=== PATIENT | male | born 1980 | race African-American/Black ===

== ENCOUNTER → 2018-07-11 16:10 | Emergency (ER) | payer SELFPAY ==
[~2018-07-11 16:10] MED LIST: Ibuprofen TAB* 600 MG PO ONE
--- NOTE | 2018-07-11 18:11 | ED ---
Lower Extremity - HPI Summary HPI Summary: Patient complains of right ankle pain starting Tuesday after he tripped. Patient has been ambulatory since. Denies any other symptoms, pain or injury. - History of Current Complaint Chief Complaint: EDExtremityLower Stated Complaint: ANKLE/FOOT SWOLLEN PER PT Time Seen by Provider: 07/11/18 16:39 Hx Obtained From: Patient Mechanism Of Injury: Twisted Onset of Pain: Immediate Onset/Duration: Days Severity Initially: Moderate Severity Currently: Moderate Pain Intensity: 4 Pain Scale Used: 0-10 Numeric Timing: Constant Location: Is Discrete @ Character Of Pain: Aching, Throbbing Associated Signs And Symptoms: Positive: Swelling Aggravating Factor(s): Weight Bearing Alleviating Factor(s): Rest, Elevation Able to Bear Weight: Yes - Allergies/Home Medications Allergies/Adverse Reactions: Allergies Allergy/AdvReac Type Severity Reaction Status Date / Time amoxicillin Allergy Difficulty Verified 07/11/18 16:16 Breathing Home Medications: Home Medications NK [No Home Medications Reported] 07/11/18 [History Confirmed 07/11/18] PMH/Surg Hx/FS Hx/Imm Hx Endocrine/Hematology History: Denies: Hx Anticoagulant Therapy Cardiovascular History: Denies: Hx Pacemaker/ICD History: Denies: Hx Dialysis Sensory History: Denies: Hx Eye Prosthesis Opthamlomology History: Denies: Hx Legally Blind EENT History: Denies: Hx Deafness Neurological History: Denies: Hx Dementia Psychiatric History: Denies: Hx Autism Infectious Disease History: No Infectious Disease History: Denies: Traveled Outside the [place] in Last 30 Days - Social History Alcohol Use: None Substance Use Type: Reports: None Smoking Status (MU): Never Smoked Tobacco Review of Systems Constitutional: Negative Eyes: Negative ENT: Negative Cardiovascular: Negative Respiratory: Negative Gastrointestinal: Negative Genitourinary: Negative Musculoskeletal: Other Skin: Negative Neurological: Negative Psychological: Normal All Other Systems Reviewed And Are Negative: Yes Physical Exam - Summary Physical Exam Summary: Swelling and tenderness to right lateral ankle. Exam of foot normal. Nontender. PMS intact distally. No obvious ecchymosis, erythema, deformity to right ankle. Triage Information Reviewed: Yes Vital Signs On Initial Exam: Initial Vitals Temp Pulse Resp BP Pulse Ox 99.6 F 81 18 134/92 97 07/11/18 16:14 07/11/18 16:14 07/11/18 16:14 07/11/18 16:14 07/11/18 16:14 Vital Signs Reviewed: Yes Appearance: Positive: Well-Appearing Skin: Positive: Warm Head/Face: Positive: Normal Head/Face Inspection Eyes: Positive: Normal Neck: Positive: Supple Respiratory/Lung Sounds: Positive: Clear to Auscultation Cardiovascular: Positive: Normal Abdomen Description: Positive: Nontender Musculoskeletal: Positive: Normal Neurological: Positive: Normal Psychiatric: Positive: Normal AVPU Assessment: Alert - [place] Coma Scale Best Eye Response: 4 - Spontaneous Best Motor Response: 6 - Obeys Commands Best Verbal Response: 5 - Oriented Coma Scale Total: 15 Diagnostics - Vital Signs Vital Signs Temp Pulse Resp BP Pulse Ox 07/11/18 16:14 99.6 F 81 18 134/92 97 - Laboratory Lab Statement: Any lab studies that have been ordered have been reviewed, and results considered in the medical decision making process. Lower Extremity Course/Dx - Course Course Of Treatment: Patient complains of right ankle pain starting Tuesday after he tripped. Patient has been ambulatory since. Denies any other symptoms , pain or injury. Physical exam:Swelling and tenderness to right lateral ankle. Exam of foot normal. Nontender. PMS intact distally. No obvious ecchymosis, erythema, deformity to right ankle. Vital signs within normal limits. X-ray negative for acute process. Gel ankle splint applied by nurse. Advised patient ice, elevation, rest and ibuprofen. - Diagnoses Provider Diagnoses: Ankle sprain Discharge - Sign-Out/Discharge Documenting (check all that apply): Patient Departure Patient Received Moderate/Deep Sedation with Procedure: No - Discharge Plan Condition: Stable Disposition: HOME Patient Education Materials: Ankle Sprain (ED), Ankle Stirrup Splint (ED) Forms: *Work Release Referrals: No Primary Care Phys,NOPCP [Primary Care Provider] - Additional Instructions: Ice, rest and elevation. Alternate ibuprofen 600 mg with Tylenol 650 mg every 3 hours for pain and swelling. Wear brace until symptoms improve. If symptoms persist follow-up with orthopedics Dr. Henderson for further evaluation. Return to the ED for any new or worsening symptoms. - Billing Disposition and Condition Condition: STABLE Disposition: Home
[2018-07-11 18:51] VITALS: BP 129/98
== END | disposition home or self-care (01) ==
LOC: ED 16:10 → EDBD 16:10
DX: S93.401A Sprain of unspecified ligament of right ankle, initial encounter (principal); W18.41XA Slipping, tripping and stumbling without falling due to stepping on object, initial encounter; Y92.9 Unspecified place or not applicable; Z88.0 Allergy status to penicillin
CPT/HCPCS: 99281; A9270-GY